=== PATIENT | female | born 1995 | race Caucasian/White ===

== ENCOUNTER 2018-04-18 22:47 | Emergency (ER) | payer MEDICAID ==
[2018-04-18 22:55] VITALS: PULSE 55; RESP 18; O2SAT 100
[2018-04-18] MEDS ORDERED: Sodium Chloride 0.9% 1,000 ML IV STA (23:26)
[2018-04-19 00:01] LABS: BASO % 0.5 % (0.0-2.0); EOS # 0.1 K/uL (0.0-0.7); EOS % 1.2 % (0.0-4.0); HEMOGLOBIN 11.5 g/dL (12.0-16.0); LYMPH # 1.5 K/uL (1.0-4.3); LYMPH % 18.2 % (20.0-40.0); MEAN CELL VOLUME 82.1 fl (81.0-99.0); MEAN CORPUSCULAR HEMOGLOBIN 27.8 pg (27.0-31.0); MEAN CORPUSCULAR HGB CONC 33.8 g/dL (33.0-37.0); MEAN PLATELET VOLUME 10.5 fl (7.2-11.7); MONO # 0.4 K/uL (0.0-0.8); MONO % 4.5 % (0.0-10.0); NEUT # 6.4 K/uL (1.8-7.0); NEUT % 75.6 % (50.0-75.0); RBC 4.14 Mil/uL (3.80-5.20); RED CELL DISTRIBUTION WIDTH 14.3 % (11.5-14.5); WHITE BLOOD COUNT 8.5 K/uL (4.8-10.8)
--- NOTE | 2018-04-19 00:06 | ED PDOC ---
HPI: Abdomen Time Seen by Provider: 04/18/18 22:58 Chief Complaint (Nursing): Abdominal Pain Chief Complaint (Provider): Abdominal Pain History Per: Patient History/Exam Limitations: no limitations Onset/Duration Of Symptoms: Sudden Onset Location Of Pain/Discomfort: Epigastric, LUQ, LLQ, Periumbilical, Suprapubic Associated Symptoms: Vomiting (non bloody, non bilious), Constipation Additional Complaint(s): 22 years old female with history of chronic constipation presents to ER for evaluation of sudden onset of pariumbilical pain radiating to lower abdomen. Patient reports she has been trying to have bowel movement but pain persists associated with 2 episodes of non bloody, non bilious vomiting. She reports she ate dinner [employer] and her last bowel movement was 2 to 3 days ago. Patient states sometimes she doesn't have bowel movement for a week. She reports her period started yesterday with normal flow at the right time. Patient denies taking any medications for pain or constipation. PMD: cannot recall Past Medical History Reviewed: Historical Data, Nursing Documentation, Vital Signs Vital Signs: Last Vital Signs Temp 97.2 F L 04/18/18 22:51 Pulse 55 L 04/18/18 22:51 Resp 18 04/18/18 22:51 BP 94/41 L 04/18/18 22:51 Pulse Ox 100 04/18/18 22:51 - Medical History Other PMH: Chronic constipation - Surgical History Surgical History: No Surg Hx - Family History Family History: States: No Known Family Hx Other Family History: Cardiac disease - Social History Current smoker - smoking cessation education provided: No Alcohol: None Drugs: Denies - Allergies Allergies/Adverse Reactions: Allergies Allergy/AdvReac Type Severity Reaction Status Date / Time No Known Allergies Allergy Verified 04/18/18 22:51 Review of Systems ROS Statement: Except As Marked, All Systems Reviewed And Found Negative Gastrointestinal: Positive for: Vomiting (non bloody, non bilious), Abdominal Pain (pariumbilical radiating to lower abdomen), Constipation Physical Exam - Reviewed Nursing Documentation Reviewed: Yes Vital Signs Reviewed: Yes - Physical Exam Appears: Positive for: Non-toxic, In Acute Distress (mild painful) Head Exam: Positive for: ATRAUMATIC, NORMOCEPHALIC Skin: Positive for: Pallor Eye Exam: Positive for: EOMI, PERRL ENT: Positive for: Other (moist mucous memebrane) Neck: Positive for: Painless ROM, Supple Cardiovascular/Chest: Positive for: Regular Rate, Rhythm. Negative for: Murmur Respiratory: Positive for: Normal Breath Sounds. Negative for: Respiratory Distress Gastrointestinal/Abdominal: Positive for: Bowel Sounds (normal), Tenderness (midline epigastric, pariumbilical, suprapubic and bilateral lower quadrant). Negative for: Mass, Distended, Guarding, Rebound Back: Negative for: L CVA Tenderness, R CVA Tenderness Extremity: Positive for: Normal ROM. Negative for: Deformity Neurologic/Psych: Positive for: Alert, Oriented (x3) - Laboratory Results Result Diagrams: 04/18/18 23:35 04/18/18 23:35 - ECG O2 Sat by Pulse Oximetry: 100 (RA) Pulse Ox Interpretation: Normal Medical Decision Making Medical Decision Making: Time: 2325 Initial Impression: Abdominal pain. Differential includes but not limited to constipation, UTI, colic and obstruction Initial Plan: --CMP --HCG --Lipase --Magnesium --Phosphorous --Urine --Urine dipstick --CBC --Obstruction series x-ray --NaCl 1,000 ml IV Patient was offered medication for pain relief but she declines. [address] Castillo, pending ER workup, reassessment and final disposition. Scribe Attestation: Documented by Ca Brar, acting as a scribe for Diana Razo MD. Provider Scribe Attestation: All medical record entries made by the Scribe were at my direction and personally dictated by me. I have reviewed the chart and agree that the record accurately reflects my personal performance of the history, physical exam, medical decision making, and the department course for this patient. I have also personally directed, reviewed, and agree with the discharge instructions and disposition. Disposition - Clinical Impression Clinical Impression: Abdominal pain - Disposition Disposition: Transfer of Care Disposition Time: 00:00 Condition: STABLE
[2018-04-19 00:10] LABS: ALB/GLOB RATIO 1.5 (1.0-2.1); ALBUMIN 4.4 g/dL (3.5-5.0); ALT/SGPT 23 U/L (9-52); AST/SGOT 21 U/L (14-36); BLOOD UREA NITROGEN 11 mg/dl (7-17); CALCIUM 9.2 mg/dL (8.4-10.2); GFR NON-AFRICAN AMERICAN > 60; LIPASE 102 U/L (23-300)
--- NOTE | 2018-04-19 00:18 | ED PDOC ---
- Laboratory Results Result Diagrams: 04/18/18 23:35 04/18/18 23:35 - ECG O2 Sat by Pulse Oximetry: 100 (RA) Pulse Ox Interpretation: Normal Medical Decision Making Medical Decision Makin Patient endorsed to me by Dr. Razo, pending ER workup, reassessment and final disposition. 100 Abundant stool seen on xray Patient was given lactulose and enema Had large BM and felt much relief Advised to followup with Dr. Ontiveros Very well appearing upon discharge Scribe Attestation: Documented by Ca Brar, acting as a scribe for Sony Castillo MD. Provider Scribe Attestation: All medical record entries made by the Scribe were at my direction and personally dictated by me. I have reviewed the chart and agree that the record accurately reflects my personal performance of the history, physical exam, medical decision making, and the department course for this patient. I have also personally directed, reviewed, and agree with the discharge instructions and disposition. Disposition - Clinical Impression Clinical Impression: Constipation - POA Present On Arrival: None - Disposition Referrals: Gagan Ontiveros MD [Staff Provider] - Disposition: Routine/Home Disposition Time: 02:00 Condition: STABLE Instructions: Constipation in Adults Forms: [employer]Pack (Thai)
[2018-04-19 02:33] VITALS: BP 108/55; TEMP 98.1
--- NOTE | 2018-04-19 09:26 | RAD ---
Date of service: 04/19/2018 PROCEDURE: Radiographs of the chest and abdomen (obstructive series) HISTORY: abd pain r/o sbo COMPARISON: No prior. TECHNIQUE: AP radiograph of the chest, with upright and supine radiographs of the abdomen. FINDINGS: CHEST: Lungs: Clear. Cardiovascular: Normal size heart. No pulmonary vascular congestion. No aortic atherosclerotic calcification present Pleura: No pleural fluid. No pneumothorax. Other findings: None. ABDOMEN AND PELVIS: Bowel: Unremarkable bowel gas pattern. No evidence of mechanical obstruction. Free air: None. Bones: Unremarkable. Other findings: None. IMPRESSION: Unremarkable radiographs of chest and abdomen. No evidence of mechanical bowel obstruction.
== END 2018-04-19 02:23 | disposition home or self-care (01) ==
LOC: H.ER 22:47
DX: K59.00 Constipation, unspecified (principal)
CPT/HCPCS: 74022; 80053; 83605; 83690; 83735; 84100; 84703; 85025; 96360; 99284; J7030